=== PATIENT | female | born 1995 | race Caucasian/White ===

== ENCOUNTER 2020-11-18 06:20 | Inpatient (IN) ==
[2020-11-18] MEDS ORDERED: BETADINE SOLN ONE (06:38)
[2020-11-18] MEDS ORDERED: PITOCIN ONE (06:38)
[2020-11-18] MEDS ORDERED: D5 1/2 NS 1000 ML 1,000 ML IV ONE (06:38)
[2020-11-18] MEDS ORDERED: NS 100 ML IV 100 ML IV ONE ×2 (06:39→11:43)
[2020-11-18] MEDS ORDERED: D5LR 1L W PITOCIN 10 UNITS/L 10 UNITS/1,000 ML BAG IV ONE (06:39)
[2020-11-18] MEDS ORDERED: AMPICILLIN VIAL 2 GRAM ONE (06:39)
[2020-11-18] MEDS ORDERED: D5 1/2 NS 1L W PITOCIN 20 UNITS/L 20 UNITS/1,000 ML BAG IV ONE (06:39)
[2020-11-18] MEDS ORDERED: D5LR 1L W PITOCIN 10 UNITS/L 10 UNITS/1,000 ML BAG IV PRN (07:07)
[2020-11-18] MEDS ORDERED: PHENERGAN INJ 25 MG IM PRN ×2 (07:07→13:29)
[2020-11-18] MEDS ORDERED: PITOCIN IVP ONE (07:07)
[2020-11-18] MEDS ORDERED: AMPICILLIN VIAL 2 GRAM 2 G in NS 100 ML IV + SPIKE MINIBAG* 100 ML IV SCH (07:07)
[2020-11-18] MEDS ORDERED: MORPHINE SULFATE INJ 2 MG INJ IVP PRN (07:07)
[2020-11-18] MEDS ORDERED: NUBAIN INJ 200 MG VIAL MULTIDOSE IVP PRN (07:07)
[2020-11-18] MEDS ORDERED: REGLAN INJ 10 MG VIAL IVP PRN (07:07)
[2020-11-18] MEDS ORDERED: D5 1/2 NS 1000 ML 1,000 ML IV SCH (07:07)
--- NOTE | 2020-11-18 07:10 | DR.OB ---
OB Quick Note - Assessment/Plan Assessment/Plan: L&D 11/18/20 at 6:55am S-No complaint. O-Afebrile,VSS BJS=[id number] with good LTV, +accel, no decel. CTX=none CVX=3cm/50%/-1/VTX AROM with good LTV, +accel, no decel. A-IUP at 38 1/7 weeks for induction PIH Rh- +GBS P-Begin pitocin induction IV ABX in labor for +GBS Check preeclamptic labs Anticipate
[2020-11-18] MEDS ORDERED: STADOL INJ IVP PRN (07:36)
[2020-11-18 07:37] LABS: URIC ACID 4.2 mg/dL (2.6-6.0)
[2020-11-18] MEDS ORDERED: STADOL INJ ONE (07:58)
[2020-11-18] MEDS ORDERED: FENTANYL INJ 100 mcg ONE (07:58)
[2020-11-18] MEDS ORDERED: NAROPIN EPIDURAL 0.2% 100 ML ONE (07:59)
[2020-11-18] MEDS ORDERED: LR 1000 ML IV 1,000 ML IV ONE ×2 (07:59→10:24)
[2020-11-18] MEDS ORDERED: REGLAN INJ 10 MG VIAL ONE (10:22)
[2020-11-18] MEDS ORDERED: AMPICILLIN VIAL 1 GRAM ONE (11:43)
[2020-11-18] MEDS: AMPICILLIN VIAL 1 GRAM 1 G in NS 50 ML IV + SPIKE MINIBAG* 50 ML IV SCH ×3 (11:45→12:05)
[2020-11-18] MEDS: VSL#3 PO SCH ×2 (11:48→11:49)
--- NOTE | 2020-11-18 11:57 | DR.OB ---
OB Quick Note - Assessment/Plan Assessment/Plan: L&D 11/18/20 at 11:50am Pitocin=6mu/min. Ampicillin S-No complaint. s/p epidural. O-Afebrile,VSS LTP=089 with good LTV, +accel, no decel. CTX=q 1 1/2 min., about 45-60mmHg CVX=8cm/100%/0 A-IUP at 38 1/7 weeks for induction PIH +GBS Rh- P-Cont. pitocin induction, ABX in labor Anticipate
[2020-11-18] MEDS ORDERED: MOTRIN TAB 800 MG PO PRN (13:29)
--- NOTE | 2020-11-18 13:29 | DR.OB ---
OB Quick Note - Assessment/Plan Assessment/Plan: Delivery Note SPOT WASHER 11/18/20 at 1:07pm Patient complete and pushing. Head delivered over intact perineum. No nuchal cord but cord next to head. Nose and mouth bulb suctioned. Body delivered over intact perineum. Cord clamped x 2 cut. Infant handed to attendant. Cord sent for gases. Placenta delivered spontaneously / intact / 3 vessel cord. A small midline second degree tear noted and repaired with 0-vicryl in usual fashion. No CVX tears. Viable female infant, VTX/OA, wt=6'0" and 9/9, stable to NBN. Mother stable to RR. YJI=[id number].
[2020-11-18] MEDS: D5 1/2 NS 1000 ML 1,000 ML with PITOCIN 20 UNITS IV SCH ×2 (14:00)
[2020-11-18] MEDS ORDERED: ADACEL or BOOSTRIX TDaP VACCINE IM ONE (14:28)
[2020-11-18] MEDS ORDERED: HYPERRHO S/D (or RHOGAM) IM PRN (14:28)
[2020-11-18] MEDS ORDERED: MILK OF MAGNESIA PO PRN (14:28)
[2020-11-18] MEDS ORDERED: AMBIEN PO PRN (14:28)
[2020-11-18] MEDS ORDERED: DERMOPLAST PAIN RELIEF SPRAY TOP PRN (14:28)
[2020-11-19 04:17] LABS: HEMATOCRIT 35.9 % (36.0-47.0); HEMOGLOBIN 11.7 g/dL (12.0-16.0)
[2020-11-19] MEDS: D5 1/2 NS 1000 ML 1,000 ML with PITOCIN 20 UNITS IV SCH ×2 (08:40)
[2020-11-19] MEDS: VSL#3 PO SCH (08:44)
[2020-11-19] MEDS ORDERED: PRENATAL PLUS PO SCH (09:00)
[2020-11-19] MEDS ORDERED: ADACEL or BOOSTRIX TDaP VACCINE IM ONE (12:54)
[2020-11-19 15:22] VITALS: BP 131/76
== END 2020-11-19 15:05 | disposition home or self-care (01) | DRG 806 ==
LOC: LD 06:20 → MED/SURG 14:57
PROVIDERS: ADMIT Specialist; ATTEND Specialist
DX: B95.1 Streptococcus, group B, as the cause of diseases classified elsewhere; O70.1 Second degree perineal laceration during delivery; Z23 Encounter for immunization; O99.343 Other mental disorders complicating pregnancy, third trimester; O13.3 Gestational [pregnancy-induced] hypertension without significant proteinuria, third trimester; Z3A.38 38 weeks gestation of pregnancy; Z37.0 Single live birth; O36.0930 Maternal care for other rhesus isoimmunization, third trimester, not applicable or unspecified; Z29.13 Encounter for prophylactic Rho(D) immune globulin; O99.824 Streptococcus B carrier state complicating childbirth